=== PATIENT | male | born 1955 | race Caucasian/White ===

== ENCOUNTER 2016-08-26 12:46 | Emergency (ER) | payer BC ==
[2016-08-26] MEDS ORDERED: Lidocaine 1% 50 ML MDV INJECT ONE (13:13)
--- NOTE | 2016-08-26 13:16 | EDM.PDOC ---
ED HPI GENERAL MEDICAL PROBLEM - General Chief Complaint: Laceration Stated Complaint: LACERATION ON RT FINGER Time Seen by Provider: 08/26/16 13:09 Source of Information: Reports: Patient History Limitations: Reports: No Limitations - History of Present Illness INITIAL COMMENTS - FREE TEXT/NARRATIVE: Patient is a 60-year-old male who presents to the ED complaining of a laceration to the distal tip of the right index finger. Patient states he was working on a sickle bar of a combine and it was accidentally turned cutting his finger. He has a large laceration to the distal tip of his finger. Bleeding has been minimally controlled with dressing and pressure. Tetanus status up-to- date. Pain is currently a 6 out of 10. Denies any numbness or tingling. Unable to move the finger secondary discomfort. Last meal was this morning. Left Hand Pain Score (Numeric/FACES): 7 - Related Data Allergies Allergy/AdvReac Type Severity Reaction Status Date / Time No Known Allergies Allergy Verified 08/26/16 13:05 Home Meds: Home Meds Acetaminophen/HYDROcodone [[place] 325-5 MG] 1 tab PO Q6H PRN #10 tablet 08/26/16 [Rx] Cephalexin [Keflex] 500 mg PO QID #28 capsule 08/26/16 [Rx] Past Medical History - Past Health History Medical/Surgical History: Denies Medical/Surgical History Social & Family History - Tobacco Use Smoking Status *Q: Current Every Day Smoker Years of Tobacco use: 50 Packs/Tins Daily: 1 - Caffeine Use Caffeine Use: Reports: Coffee ED ROS GENERAL - Review of Systems Review Of Systems: ROS reveals no pertinent complaints other than HPI. ED EXAM, SKIN/RASH Exam: See Below Exam Limited By: No Limitations General Appearance: Alert, WD/WN, No Apparent Distress Ears: Hearing Grossly Normal Nose: Normal Inspection Throat/Mouth: Normal Voice, No Airway Compromise Neck: Normal Inspection, Supple Respiratory/Chest: No Respiratory Distress, Lungs Clear, Normal Breath Sounds, No Accessory Muscle Use, Chest Non-Tender Cardiovascular: Normal Peripheral Pulses, Regular Rate, Rhythm, No JVD, No Murmur Peripheral Pulses: 2+: Radial (R) Extremities: Other (Large laceration through the tip of the right index finger with oozing of blood present. No sensory deficits noted. Unable to check motor function secondary to pain.) Neurological: Alert, Oriented, CN II-XII Intact, Normal Cognition, No Motor/ Sensory Deficits (No sensory deficits noted. Unable to check motor function secondary to pain.) Psychiatric: Normal Affect, Normal Mood Skin: Warm, Dry, Intact, Normal Color ED SKIN PROCEDURES - Laceration/Wound Repair Right Finger Lac/Wound length In cm: 6 Appearance: Subcutaneous Anesthetic Type: Digital Local Anesthesia - Lidocaine (Xylocaine): 1% Plain Local Anesthetic Volume: 5cc Skin Prep: Chlorhexidine (Hibiciens), Saline, Sterile Drape Exploration/Debridement/Repair: Wound Explored, in a Bloodless Field, Explored to Base, No Foreign Material Found Closed with: Sutures Suture Size: 4-0 # of Sutures: 13 Suture Type: Prolene, Interrupted, Simple Drain Placement: No Sterile Dressing Applied: Nurse Tetanus Status Addressed: Yes Complications: No Course - Vital Signs Last Recorded V/S: Last Vital Signs Temp 97.4 F 08/26/16 13:02 Pulse 81 08/26/16 13:02 Resp 16 08/26/16 13:02 BP 152/94 H 08/26/16 13:02 Pulse Ox 99 08/26/16 13:02 - Orders/Labs/Meds Meds: Medications Discontinued Medications Generic Name Dose Route Start Last Admin Trade Name Freq PRN Reason Stop Dose Admin Cephalexin 500 mg 08/26/16 14:06 08/26/16 15:11 Keflex PO 08/26/16 14:07 500 mg ONETIME ONE Administration Lidocaine HCl 50 ml 08/26/16 13:13 08/26/16 13:28 Xylocaine 1% INJECT 08/26/16 13:14 50 ml ONETIME ONE Administration - Re-Assessments/Exams Free Text/Narrative Re-Assessment/Exam: Ordered x-ray of the right index finger and lidocaine. Presumably this patient' s can have a open fracture. Thus will require IV access and IV antibiotics. Unknown at this time if patient will require surgery. 08/26/16 13:51 x-ray of the right index finger did not elicit any acute bony abnormalities. 08/26/16 14:06 digital block placed with finger tourniquet. Laceration closed with no complications. Ordered Keflex 500 mg by mouth. We'll discharge patient home with instructions as documented. Of note patient was able to flex/extend the distal aspect of the affected finger against resistance with no issues. Departure - Departure Time of Disposition: 15:17 Disposition: Home, Self-Care 01 Condition: Good Clinical Impression: Finger laceration Qualifiers: Encounter type: initial encounter Finger: index finger Damage to nail status: without damage Foreign body presence: without foreign body Laterality: right Qualified Code(s): S61.210A - Laceration without foreign body of right index finger without damage to nail, initial encounter - Discharge Information Prescriptions: Acetaminophen/HYDROcodone [[place] 325-5 MG] 1 tab PO Q6H PRN #10 tablet PRN Reason: Pain (Severe 7-10) Cephalexin [Keflex] 500 mg PO QID #28 capsule Instructions: Stitches, Bruno, or Adhesive Wound Closure, [id number], Laceration Care, Adult, [id number] Referrals: PCP,None [Primary Care Provider] - Forms: ED Department Discharge Additional Instructions: Leave dressing in place until tomorrow morning. Change dressing twice daily after cleansing it with soap and water, pat dry, and reapplication of triple antibiotic ointment. Leave splint in place until sutures come out. Take the Keflex as prescribed. For pain take ibuprofen and Tylenol in alternating fashion. Elevate when able to reduce swelling and pain. Can apply ice to affected area as needed. Refrain from utilizing the affected finger for any activities. For severe pain take [place] one tab every [address] or operating heavy equipment while taking this medication. Sutures will come out in approximately 10 days. Keep laceration clean and dry. No soaking of laceration. See your primary care provider or provider's [facility] in [place] to do so.
[2016-08-26 13:29] VITALS: BP 152/94
[2016-08-26] MEDS ORDERED: Cephalexin 500 MG Cap PO ONE (14:06)
--- NOTE | 2016-08-26 16:08 | CR ---
Right second finger: Four views of the right second finger were obtained. Comparison: No previous exam. Soft tissue injury identified distally. Small linear opaque foreign objects are seen within the soft tissues presumably representing foreign body. No fracture or dislocation is seen. Minimal osteophyte noted at the base of the distal phalanx. Impression: 1. Several small foreign bodies projected within the distal soft tissues. Soft tissue injury. 2. No acute bony abnormality is seen. Diagnostic code #3
== END 2016-08-26 15:17 | disposition home or self-care (01) ==
LOC: JD.ED 12:46
DX: S61.211A Laceration without foreign body of left index finger without damage to nail, initial encounter (principal); F17.210 Nicotine dependence, cigarettes, uncomplicated; W26.8XXA Contact with other sharp object(s), not elsewhere classified, initial encounter
CPT/HCPCS: 12002; 73140; 99283; A9270

== ENCOUNTER 2020-04-29 07:35 | Emergency (ER) | payer MEDICARE, BC ==
[2020-04-29 07:50] VITALS: BP 150/97; PULSE 75
[2020-04-29] MEDS ORDERED: Fluorescein 1 MG Ophth Strip EYELF ONE (08:00)
[2020-04-29] MEDS ORDERED: Ciprofloxacin 0.3% Ophth Soln 5 ML Bottle EYELF ONE (08:12)
--- NOTE | 2020-04-29 08:13 | EDM.PDOC ---
ED HPI GENERAL MEDICAL PROBLEM - General Chief Complaint: Eye Problems Stated Complaint: FB LT EYE Time Seen by Provider: 04/29/20 07:46 Source of Information: Reports: Patient History Limitations: Reports: No Limitations - History of Present Illness INITIAL COMMENTS - FREE TEXT/NARRATIVE: The patient was fixing fence yesterday and he was by a [place] and he tripped and fell and hit his left eye with grass or twigs. It felt like something was in his left eye. He irrigated but still feels like there is something there. He says he may have a little blurry vision. He has some ecchymosis to the upper eyelid. Onset: Sudden Duration: Day(s): (Yesterday) Location: Reports: Face (Left eye) Quality: Reports: Ache (like something is in the eye) Severity: Moderate Improves with: Reports: None Worsens with: Reports: None Associated Symptoms: Reports: No Other Symptoms Left Eye Pain Score (Numeric/FACES): 5 - Related Data Allergies Allergy/AdvReac Type Severity Reaction Status Date / Time No Known Allergies Allergy Verified 04/29/20 07:49 Home Meds: Home Meds . [No Known Home Meds] 04/29/20 [History] Past Medical History - Past Health History Medical/Surgical History: Denies Medical/Surgical History Social & Family History - Caffeine Use Caffeine Use: Reports: Coffee ED ROS GENERAL - Review of Systems Review Of Systems: See Below Constitutional: Reports: No Symptoms HEENT: Reports: Eye Pain Respiratory: Reports: No Symptoms Cardiovascular: Reports: No Symptoms Endocrine: Reports: No Symptoms GI/Abdominal: Reports: No Symptoms : Reports: No Symptoms Musculoskeletal: Reports: No Symptoms ED EXAM GENERAL W FULL EYE - Physical Exam Exam: See Below Exam Limited By: No Limitations General Appearance: Alert, No Apparent Distress Eye Exam: Left Eye: Corneal Abrasion (To upper cornea), Other (Subcnojunctival hemorrhage), Bilateral Eye: EOMI, PERRL Eyelids: Left: Ecchymosis Conjunctiva & Sclera: Left: Subconjuctival Hemorrhage Cornea Exam: Left: Corneal Abrasion Extraocular Movements: Bilateral: Intact Pupillary Size: Bilateral: 4 mm Pupillary Reaction: Bilateral: Brisk Anterior Chamber: Left: Normal Appearance Ears: Normal External Exam Nose: Normal Inspection Head: Atraumatic, Normocephalic Neck: Normal Inspection Respiratory/Chest: No Respiratory Distress Course - Vital Signs Last Recorded V/S: Last Vital Signs Temp 97.3 F 04/29/20 07:46 Pulse 75 04/29/20 07:46 Resp 18 04/29/20 07:46 BP 150/97 H 04/29/20 07:46 Pulse Ox 95 04/29/20 07:46 - Orders/Labs/Meds Meds: Medications Discontinued Medications Generic Name Dose Route Start Last Admin Trade Name Osorio PRN Reason Stop Dose Admin Fluorescein Sodium 1 mg 04/29/20 08:00 Fluorescein 1 Mg Ophth Strip EYELF 04/29/20 08:01 ONETIME ONE - Re-Assessments/Exams Free Text/Narrative Re-Assessment/Exam: 04/29/20 08:13 He has a corneal abrasio. I will get him on some cipro drops. Departure - Departure Time of Disposition: 08:15 Disposition: Home, Self-Care 01 Condition: Good Clinical Impression: Subconjunctival hemorrhage of left eye Corneal abrasion Qualifiers: Encounter type: initial encounter Laterality: left Qualified Code(s): S05.02XA - Injury of conjunctiva and corneal abrasion without foreign body, left eye, initial encounter Traumatic ecchymosis of left eyelid Qualifiers: Encounter type: initial encounter Qualified Code(s): S00.12XA - Contusion of left eyelid and periocular area, initial encounter - Discharge Information *PRESCRIPTION DRUG MONITORING PROGRAM REVIEWED*: Not Applicable *COPY OF PRESCRIPTION DRUG MONITORING REPORT IN PATIENT SHELLIE: Not Applicable Referrals: PCP,None [Primary Care Provider] - Additional Instructions: Apply 1 drop of the cipro drops to the left eye every 4 hours while awake for 7 days. Take tylenol or motrin for pain. Follow up with an school adjustment counselor in town if you are not feeling better within a couple of days. Sepsis Event Note (ED) - Evaluation Sepsis Screening Result: No Definite Risk - Focused Exam Vital Signs: Vital Signs Temp Pulse Resp BP Pulse Ox 04/29/20 07:46 97.3 F 75 18 150/97 H 95
== END 2020-04-29 08:12 | disposition home or self-care (01) ==
LOC: JD.ED 07:35
DX: S05.02XA Injury of conjunctiva and corneal abrasion without foreign body, left eye, initial encounter (principal); S00.12XA Contusion of left eyelid and periocular area, initial encounter; H11.32 Conjunctival hemorrhage, left eye; W01.198A Fall on same level from slipping, tripping and stumbling with subsequent striking against other object, initial encounter
CPT/HCPCS: 99283; A9270

== ENCOUNTER 2021-06-14 05:02 | Emergency (ER) | payer MEDICARE, BC ==
[2021-06-14] MEDS ORDERED: Aspirin 81 MG Tab.Chew PO ONE (05:20)
[2021-06-14] MEDS ORDERED: Sodium Chloride 0.9% 10 ML Syringe FLUSH PRN (05:20)
[2021-06-14] MEDS ORDERED: Heparin Sodium 5,000 Units/ML Vial IVPUSH STA (06:10)
[2021-06-14] MEDS ORDERED: Heparin Sodium/D5W 25,000 UNITS/500 ML BAG IV SCH (06:15)
[2021-06-14] MEDS ORDERED: HYDROmorphone 1 MG/ML Syringe IVPUSH ONE (06:23)
[2021-06-14] MEDS ORDERED: Ondansetron 4 MG/2 ML SDV IVPUSH ONE (06:23)
[2021-06-14] MEDS ORDERED: Tenecteplase 50 MG Kit ONE (06:29)
[2021-06-14] MEDS ORDERED: Tenecteplase 50 MG Kit IV STA (06:29)
[2021-06-14] MEDS ORDERED: Clopidogrel 75 MG Tab PO ONE (06:30)
[2021-06-14 06:32] VITALS: BP 147/94; PULSE 63
[2021-06-14] MEDS ORDERED: Atropine 0.4 MG/ML SDV IVPUSH STA (06:59)
[2021-06-14] MEDS ORDERED: Atropine 0.1 MG/ML 10 ML Syringe IVPUSH STA (07:03)
== END 2021-06-14 08:48 ==
LOC: JD.ED 05:02
DX: I21.3 ST elevation (STEMI) myocardial infarction of unspecified site (principal); Z72.0 Tobacco use; Z20.822 Contact with and (suspected) exposure to COVID-19
CPT/HCPCS: 36415; 71045; 80053; 83735; 83880; 84484; 85025; 85379; 85610; 92977; 93005; 96365; 96366; 96375; 96376; 99285; A9270; J0461; J1170; J1644; J2405; J3101; U0002

== ENCOUNTER 2021-10-25 09:50 | Emergency (ER) | payer MEDICARE, BC ==
[2021-10-25] MEDS ORDERED: Sodium Chloride 0.9% 1,000 ML IV SCH (10:15)
[2021-10-25 11:15] LABS: ESTIMATED GFR 66 mL/min (>60)
[2021-10-25 13:12] VITALS: BP 138/87; PULSE 70
== END 2021-10-25 13:05 | disposition home or self-care (01) ==
LOC: JD.ED 09:50
DX: I20.9 Angina pectoris, unspecified (principal); I25.2 Old myocardial infarction; F17.210 Nicotine dependence, cigarettes, uncomplicated; E66.9 Obesity, unspecified; Z68.36 Body mass index [BMI] 36.0-36.9, adult
CPT/HCPCS: 36415; 71045; 80053; 82553; 83735; 83880; 84484; 85025; 85379; 85610; 85730; 86140; 96360; 96361; 99285; J7030; 93010; 99284

== ENCOUNTER 2022-06-30 19:37 | Emergency (ER) | payer MEDICARE, BC ==
[2022-06-30] MEDS ORDERED: Sodium Chloride 0.9% 10 ML Syringe FLUSH PRN ×2 (19:59→21:20)
[2022-06-30 20:16] LABS: BASOPHILS ABSOLUTE AUTO 0.03 K/mm3 (0.01-0.08); BASOPHILS PERCENT AUTO 0.2 % (0.1-1.2); EOSINOPHILS ABSOLUTE AUTO 0.07 K/mm3 (0.04-0.54); EOSINOPHILS PERCENT AUTO 0.4 (0.8-7.0); HEMATOCRIT 47.4 % (40.1-51.0); HEMOGLOBIN 16.7 gm/dl (13.7-17.5); IMMATURE GRAN ABSOLUTE AUTO 0.05 K/mm3 (0.00-0.10); IMMATURE GRAN PERCENT AUTO 0.3 % (<=1.0); LYMPHOCYTES ABSOLUTE AUTO 0.55 K/mm3 (1.32-3.57); LYMPHOCYTES PERCENT AUTO 3.1 % (21.8-53.1); MEAN CORPUSCULAR HEMOGLOBIN 33.4 pg (25.7-32.2); MEAN CORPUSCULAR HGB CONC 35.2 g/dl (32.2-35.5); MEAN CORPUSCULAR VOLUME 94.8 fl (79.0-92.2); MEAN PLATELET VOLUME 10.4 fl (9.4-12.3); MONOCYTES ABSOLUTE AUTO 0.34 K/mm3 (0.30-0.82); MONOCYTES PERCENT AUTO 1.9 % (5.3-12.2); NEUTROPHILS ABSOLUTE AUTO 16.97 K/mm3 (1.78-5.38); NEUTROPHILS PERCENT AUTO 94.1 % (34.0-67.9); PLATELET COUNT,PLT 240 K/mm3 (163-337); WHITE BLOOD CELL COUNT,WBC 18.01 K/mm3 (4.23-9.07)
[2022-06-30 20:27] LABS: INR 0.98; PROTHROMBIN TIME 10.5 SECONDS (9.7-12.0)
[2022-06-30 20:43] LABS: ANION GAP 12.8 (5-15); BILIRUBIN TOTAL 0.9 mg/dL (0.2-1.0); BUN/CREATININE RATIO 10.8 (14-18); CALCIUM 9.3 mg/dL (8.5-10.1); CREATININE 1.3 mg/dL (0.7-1.3); EST CRCL DRUG DOSING (CG) 56.15 mL/min; MAGNESIUM 1.7 mg/dL (1.8-2.4)
[2022-06-30 20:44] LABS: D-DIMER QUANTITATIVE 3.39 mg/L (0.19-0.50)
[2022-06-30 20:47] LABS: POTASSIUM,K 4.8 mEq/L (3.5-5.1)
[2022-06-30] MEDS ORDERED: Iopamidol 755 Mg/ML 100 ML Bottle IVPUSH ONE (21:20)
[2022-06-30] MEDS ORDERED: Sodium Chloride 0.9% 100 ML IV SCH (21:30)
[2022-06-30 21:48] LABS: LACTIC ACID 1.2 mmol/L (0.4-2.0)
[2022-06-30] MEDS ORDERED: Sodium Chloride 0.9% 1,000 ML IV STA (22:31)
[2022-06-30 22:39] LABS: APPEARANCE,URINE CLEAR (Clear); BILIRUBIN,URINE NEGATIVE (Negative); COLOR,URINE YELLOW (Yellow); GLUCOSE,URINE NEGATIVE (Negative); KETONES,URINE TRACE (Negative); LEUKOCYTE ESTERASE,URINE NEGATIVE (Negative); NITRITE,URINE NEGATIVE (Negative); OCCULT BLOOD,URINE NEGATIVE (Negative); PH,URINE 5.5 (5.0-8.0); PROTEIN,URINE NEGATIVE (Negative); UROBILINOGEN,URINE 0.2 (0.2-1.0)
[2022-06-30 22:44] LABS: SLIDE REVIEW ABNORMAL SMEAR
[2022-06-30 22:49] LABS: BACTERIA,URINE RARE /hpf (FEW); EPITHELIAL CELLS,URINE 0-5 /hpf (0-5); MUCUS,URINE FEW /hpf (FEW); RBC,URINE 0-5 /hpf (0-5); WBC,URINE 0-5 /hpf (0-5)
[2022-06-30] MEDS ORDERED: Heparin Sodium/D5W 25,000 UNITS/500 ML BAG IV SCH (23:45)
[2022-06-30] MEDS ORDERED: Aspirin 81 MG Tab.Chew PO STA (23:59)
[2022-06-30] MEDS ORDERED: Heparin Sodium 5,000 Units/ML Vial IVPUSH STA (23:59)
[2022-07-01] MEDS ORDERED: Sodium Chloride 0.9% 1,000 ML IV SCH (00:45)
[2022-07-01 03:04] VITALS: BP 102/64; PULSE 74
== END 2022-07-01 03:00 ==
LOC: JD.ED 19:37
DX: I21.4 Non-ST elevation (NSTEMI) myocardial infarction (principal); I10 Essential (primary) hypertension; F17.210 Nicotine dependence, cigarettes, uncomplicated; E66.9 Obesity, unspecified; Z68.34 Body mass index [BMI] 34.0-34.9, adult
CPT/HCPCS: 36415; 70450; 71045; 71275; 80053; 81001; 83605; 83735; 83880; 84484; 85025; 85379; 85610; 85730; 86140; 87040; 87077; 87154; 87186; 93005; 96361; 96365; 96366; 96376; 99285; A9270; J1644; J3490; J7030; Q9967; 93010